=== PATIENT | male | born 1960 | race Caucasian/White ===

== ENCOUNTER 2016-10-05 17:06 | Inpatient (IN) ==
[2016-10-05] MEDS ORDERED: ONDANSETRON 4 MG/2 ML INJECTION IVP ONE (17:18)
[2016-10-05] MEDS ORDERED: KETOROLAC 30 MG/ML INJECTION IVP ONE (17:18)
[2016-10-05] MEDS ORDERED: TAMSULOSIN 0.4 MG CAPSULE PO ONE (17:21)
--- NOTE | 2016-10-05 17:34 | Emergency Department Report ---
Male Urogenital HPI - General Stated complaint: Kidney Stone <10/05/16 17:39> Time Seen by Provider: 10/05/16 17:09 <10/05/16 17:39> Source: patient <10/05/16 17:39> Mode of arrival: ambulatory <10/05/16 17:39> Limitations: no limitations <10/05/16 17:39> - History of Present Illness HPI Narrative: 56yo man presents to the ER today with left flank pain of 12+hrs duration. Pt was seen in this ER last evening; he had hematuria and met minor criteria for a UTI. Pt has been taking the atbx as prescribed. This AM, pt had abrupt onset of left flank pain that wrapped around to his left abdomen. Pain has been colicky and associated with nausea. Pain has migrated into his left groin. Pt took some norco that he had at home with minimal relief of his sx. <10/05/16 17:39> Onset (ago): hour(s) <10/05/16 17:39> Duration: constant, intermittent <10/05/16 17:39> Location: left flank <10/05/16 17:39> Radiation: left testicle <10/05/16 17:39> Severity: severe <10/05/16 17:39> Severity scale (1-10): 9 <10/05/16 17:39> Quality: aching, sharp, stabbing <10/05/16 17:39> Relieving factors: none <10/05/16 17:39> Exacerbating factors: palpation, movement <10/05/16 17:39> Reports: nausea/vomiting <10/05/16 17:39> - Related Data Home Medications Medication Instructions Recorded Confirmed ALPRAZolam [Xanax] 1 mg PO PRN #0 03/06/08 10/05/16 Rosuvastatin Calcium [Crestor] 20 mg PO DAILY #0 06/17/12 10/05/16 Aspirin 81 mg PO DAILY 10/04/16 10/05/16 Cholecalciferol (Vitamin D3) 3,000 unit PO DAILY 10/04/16 10/05/16 [Vitamin D3] Insulin Lispro [HumaLOG] 70 - 120 unit SQ DAILY 10/04/16 10/05/16 Ramipril [Altace] 2.5 mg PO DAILY 10/04/16 10/05/16 Previous Rx's Medication Instructions Recorded Ciprofloxacin HCl [Cipro] 500 mg PO BID #14 tablet 10/04/16 <10/05/16 17:39> Allergies Allergy/AdvReac Type Severity Reaction Status Date / Time minocycline Allergy Severe rash & Verified 10/05/16 17:16 confusion exenatide Allergy Unknown Verified 10/05/16 17:16 naproxen Allergy Unknown Verified 10/05/16 17:16 zolpidem Allergy Unknown Verified 10/05/16 17:16 hydrocodone AdvReac Mild VOMITING Verified 10/05/16 17:16 oxycodone AdvReac Mild Nausea Verified 10/05/16 22:03 <10/05/16 17:39> Review of Systems All systems: reviewed and negative except as stated <10/05/16 17 :39> Constitutional: Reports: fever <10/05/16 17:39> Genitourinary: Reports: frequency, hematuria, other (hematuria) <10/05/16 17:39> [facility] Patient Stated Medical History Diabetes Mellitus Type 2 Yes Gastroesophageal Reflux Yes Disease Osteoarthritis Yes <10/05/16 17:39> - Social History Smoking status: Never smoker <10/05/16 17:39> Physical Exam - Limitations Limitations: no limitations <10/05/16 17:39> - General General appearance: alert, in distress (Pt is diaphoretic, dyspneic, and in obvious pain), obese <eb 10/05/16 17:39> - Normal Exams: Head:: Normocephalic without trauma <10/05/16 17:39> Eyes:: Pupils are PERRLA w/ EOMI, No scleral icterus, irritation, or foreign bodies noted <eb 10/05/16 17:39> ENMT:: No facial trauma, nasal exudates, pharyngeal erythema, or exudates are noted <July,Julio 10/05/16 17:39> Neck:: Full range of motion, without adenopathy, JVD, bruits or thyromegaly < 10/05/16 17:39> Chest/Respirations:: Clear all randolph, with good airflow, and symmetry bilaterally <July,Julio 10/05/16 17:39> Cardiovascular:: Regular rate and rhythm, without murmur or gallop, Pulses 2+ all extremities, capillary refill, <2 seconds all extremities <July,Julio 10/05/16 17:39> Abdomen:: Bowel sounds positive, soft, non-tender, non-distended, no hepatosplenomegaly, masses or bruits noted <10/05/16 17:39> Lymphatic:: No lymphadenopathy, or lymphedema noted <July,Julio10/05/16 17 :39> Musculoskeletal:: No tenderness, or deformity noted, good range of motion, all extremities <10/05/16 17:39> Integumentary:: No rashes, hives, or bruising noted, hair and nails, without abnormality <eb 10/05/16 17:39> Neurological:: Patient is alert, and oriented, cranial nerves, motor/sensory/ cerebellar, exams w/o gross deficits, to observation <July,Julio10/05/16 17:39> Psychiatric:: Patient exhibits, appropriate attention, emotion and affect <July10/05/16 17:39> Course Course Narrative: Care of pt handed off to Dr. Griffiths @ 1830. CT had been performed, but there were difficulties in transmitting images to [facility] at the time of hand-off. <10/06/16 06:14> Vital Signs Temperature 98.2 F 10/05/16 17:10 Respiratory Rate 18 10/05/16 17:10 Temperature 96.9 F 10/06/16 00:51 Pulse Rate 69 10/06/16 03:52 Respiratory Rate 18 10/06/16 03:52 Blood Pressure 123/65 10/06/16 03:52 Pulse Oximetry 94 10/06/16 03:52 <10/05/16 18:16> Urogenital-Male - MDM Narrative Medical decision making narrative: Labs/imaging were discussed in detail with the patient and family and questions are answered. Patient had a CT scan which shows hydroureter/hydronephrosis on the left. No appreciable stone is noticed. Urology consultation is obtained with Dr. Skinner. Dr. Skinner comes to the emergency department to evaluate the patient. Patient is given IV hydration. Patient is given parental narcotic and antiemetic medications intravenously. Patient was given Rocephin 1 g IV within 1st hour of arrival to the emergency department. Patient is made nothing by mouth in the emergency Department. Patient is admitted to the service of the hospitalist Dr. Car after discussion with Dr. Johnson. Accepting and consulting physicians are in agreement with the current plan of management. Patient is admitted to the hospital in improved condition. No further orders. Patient and family are in agreement with the current plan of management. Patient did not meet criteria for 30 mL/ kg of normal saline intravenously as his lactic acid was not greater than 4 and he was never hypotensive in the emergency department. <Keith Griffiths C - 10/05/16 21:24> Pt with s/s classic for ureterolithiasis. No stones noted on KUB. CT renal c/f hydroureter; labs c/f sepsis. Atbx started to cover empirically. Awaiting CT read prior to contacting urologist for discussion of further mgmt. <10/05/16 18:16> - Differential Diagnosis Likely: urinary tract infection (Ureterolithiasis, hematuria, hydroureter, hydronephrosis, pyelonephritis) <10/05/16 17:39> - Medical Records Attestation: I reviewed the patient's medical records. < 17:39> - Lab Data Attestation: I reviewed the patient's lab results. <10/06/16 06: 14> Result diagrams: 10/06/16 04:18 10/06/16 04:18 <July,Julio M - 10/05/16 17:39> Lab Results 10/05/16 10/05/16 10/05/16 Range/Units 17:20 17:20 18:57 WBC 15.1 H (4.5-11.0) T/MM3 RBC 5.75 (4.50-5.90) M/MM3 Hgb 16.5 (13.5-17.5) GM/DL Hct 49.6 (41-53) % MCV 86.3 (80-100) UM3 MCH 28.7 (26-34) UUG MCHC 33.3 (31-37) GM/DL RDW Std Deviation 45.1 (36.9-50.2) FL Plt Count 236 (130-400) T/MM3 MPV 10.9 (9.4-12.4) UM3 Immature Gran % (Auto) Not performed Neut % (Auto) Not performed Lymph % (Auto) Not performed [place] % (Auto) Not performed Eos % (Auto) Not performed Baso % (Auto) Not performed Neut # Not performed Lymph # Not performed [place] # Not performed Eos # Not performed Baso # Not performed Abs Immat Gran (auto) Not performed Neutrophils % (Manual) 67.0 H (33-66) % Band Neutrophils % 12.0 H (0-6) % Lymphocytes % (Manual) 15.0 L (23-45) % Monocytes % (Manual) 3.0 (0-9.0) % Eosinophils % (Manual) 1.0 (0-4) % Metamyelocytes % 2.0 H (0-0) % Neutrophils # (Manual) 10.1 H (1.8-7.7) T/MM3 Band Neutrophils # 1.8 T/MM3 Lymphocytes # (Manual) 2.3 (1-4.8) T/MM3 Monocytes # (Manual) 0.5 (0-0.8) T/MM3 Eosinophils # (Manual) 0.2 (0-0.5) T/MM3 Metamyelocytes # 0.3 T/MM3 RBC Morph Comment Normal Turbidity < 20 (0-20) Sodium 143 (134-144) MEQ/L Potassium 4.0 (3.6-5) MEQ/L Chloride 101 (98-107) MEQ/L Carbon Dioxide 25 (22-30) MEQ/L Anion Gap 17 H (5-15) MEQ/L BUN 11.0 (9-20) MG/DL Creatinine 0.9 D (0.8-1.5) MG/DL GFR Calculation 88 BUN/Creatinine Ratio 12 (6-26) RATIO Glucose 201 H (75-110) MG/DL Calculated Osmolality 280 (261-280) MOSM/KG Calcium 9.8 (8.4-10.2) MG/DL Total Bilirubin 0.90 (0.20-1.30) MG/DL Icterus Index < 2 (0-7) AST 31 (17-59) U/L ALT 47 (21-72) U/L Alkaline Phosphatase 92 (38-126) U/L Total Protein 7.8 (6.3-8.2) G/DL Albumin 4.8 (3.5-5.0) G/DL Globulin 3.0 (2.4-3.6) G/DL Albumin/Globulin Ratio 1.6 (1.1-2.2) RATIO Plasma Lactate 2.9 H (0.6-2.2) MMOL/L Specimen Hemolysis < 15 (0-25) Ur Collection Type Urine, clean catch Urine Color Yellow (YELLOW) Urine Clarity Sl cloudy Urine pH 5.0 (5.0-8.0) Ur Specific [place] >=1.030 H (1.015-1.025) Urine Protein 1+ A (NEGATIVE) Urine Glucose (UA) Trace A (NEGATIVE) Urine Ketones 1+ A (NEGATIVE) Urine Occult Blood 3+ A (NEGATIVE) Urine Nitrate Negative (NEGATIVE) Urine Bilirubin 1+ A (NEGATIVE) Urine Urobilinogen 0.2 (NORMAL) EU/DL Ur Leukocyte Esterase Negative (NEGATIVE) Urine RBC 50-200 H (0-3) /HPF Urine WBC 1-3 (0-5) /HPF Urine Bacteria 1+ H (NEGATIVE) Ur Culture Indicated? Cult not indicated <10/05/16 18:16> - Radiology Data Attestation: I reviewed the patient's radiology results. < 17:39> KUB: Non-obstructing bowel gas pattern. No free air or fluid. Prior lumbar fusion. No obvious renal pathology. CT Renal: Dilatation of the left renal pelvis and proximal left ureter of uncertain etiology CT urogram might be considered for followup. Sigmoid diverticulosis <10/06/16 06:14> Disposition Clinical Impression: Hydronephrosis Qualifiers: Hydronephrosis type: other Qualified Code(s): N13.39 - Other hydronephrosis <10/06/16 06:14> Disposition: 02 To [facility] [place] <10/06/16 06:14> Condition: Improved <10/06/16 06:14> Instructions: <10/05/16 17:39> Prescriptions: No Action ALPRAZolam [Xanax] 1 mg PO PRN #0 Rosuvastatin Calcium [Crestor] 20 mg PO DAILY #0 Aspirin 81 mg PO DAILY Cholecalciferol (Vitamin D3) [Vitamin D3] 3,000 unit PO DAILY Insulin Lispro [HumaLOG] 70 - 120 unit SQ DAILY Ramipril [Altace] 2.5 mg PO DAILY Ciprofloxacin HCl [Cipro] 500 mg PO BID #14 tablet <10/05/16 17:39> Referrals: Luke Avila MD [Family Provider] - <10/05/16 17 :39> Forms: <10/05/16 17:39> Time of Disposition: 20:20 (Admit. Dr. Car. ) <Keith Griffiths 10/05/16 21: 24> - Seen By: physician <Keith Griffiths 10/05/16 21:24>
[2016-10-05] MEDS: NS 1,000 ML IV SCH ×3 (17:38→23:41)
[2016-10-05] MEDS: SALINE FLUSH 10ml SYRINGE IVF PRN (17:39)
[2016-10-05] MEDS ORDERED: FentaNYL 100 MCG/2 ML INJECTION IVP PRN (17:45)
[2016-10-05] MEDS ORDERED: CEFTRIAXONE (ER USE ONLY) 1 GM in NS 100 ML IV ONE (17:59)
--- NOTE | 2016-10-05 21:17 | Urology Consult Note ---
Urology [facility] - Data of Consult Consult date: 10/05/16 Requesting Physician: Zoila Mars MD Primary Care Provider: Luke Avila MD Family Provider: Luke Avila MD - Consult Narrative Reason for consult: Left hydronephrosis + SEpsis History of present illness: This is a 56-year-old patient who began having left flank pain 2 days ago. He also noticed blood in his urine. He presented to the ER where he was when he was given a prescription for antibiotic and discharged home. However his pain persisted and became worse. He came to the ER again today. CT scan done showed left hydronephrosis secondary to obstruction the left mid ureter. CT did not reveal a clear stone. The patient did not receive IV contrast do due to the strong family history to IV contrast. He continues to report gross hematuria and severe left flank pain. He denies fevers or chills. His white blood count is 15,000. His lactate level is 2.9. Patient has no history. He is not a heavy smoker. He has insulin-dependent diabetes. Review of Systems - Constitutional Constitutional: Absent: fever(s), headache(s), malaise - EENT Eyes: Absent: blurry vision, change in vision Mouth/Throat: Absent: mucosa dry, normal dentition - Cardiovascular Cardiovascular: Absent: chest pain, palpitations, syncope - Respiratory Respiratory: Absent: cough, dyspnea, hemoptysis - Gastrointestinal Gastrointestinal: Absent: abdominal pain, change in bowel habits, change in stool character - Genitourinary Genitourinary: Present: flank pain, hematuria - Musculoskeletal Musculoskeletal: Absent: deformity, joint swelling, limited range of motion - Integumentary/Breasts Integumentary: Absent: erythema, lesions - Neurological Neurological: Absent: abnormal gait, abnormal movements, confusion, headache(s) - Psychiatric Psychiatric: Absent: anxiety, auditory hallucinations, hallucinations PFSH Insulin-dependent diabetes Back pain Pancreatitis Surgical History: Cholecystectomy Family History: No family history of stones - Social History Smoking status: Former smoker (occasional during his thirties) Medications Home Medications Medication Instructions Recorded Confirmed Type ALPRAZolam [Xanax] 1 mg PO PRN #0 03/06/08 10/05/16 History Rosuvastatin Calcium [Crestor] 20 mg PO DAILY #0 06/17/12 10/05/16 History Aspirin 81 mg PO DAILY 10/04/16 10/05/16 History Cholecalciferol (Vitamin D3) 3,000 unit PO DAILY 10/04/16 10/05/16 History [Vitamin D3] Insulin Lispro [HumaLOG] 70 - 120 unit SQ DAILY 10/04/16 10/05/16 History Ramipril [Altace] 2.5 mg PO DAILY 10/04/16 10/05/16 History Allergies Allergy/AdvReac Type Severity Reaction Status Date / Time minocycline Allergy Severe rash & Verified 10/05/16 17:16 confusion exenatide Allergy Unknown Verified 10/05/16 17:16 naproxen Allergy Unknown Verified 10/05/16 17:16 zolpidem Allergy Unknown Verified 10/05/16 17:16 oxycodone AdvReac Severe Nausea Verified 10/05/16 17:47 hydrocodone AdvReac Mild VOMITING Verified 10/05/16 17:16 Urology Results - Labs CBC & Chem 7: 10/05/16 17:20 10/05/16 17:20 - Imaging and Cardiology CT scan - abdomen Additional comments: See history of present illness Urology Exam Vital signs: Temperature 98.2 F 10/05/16 17:10 Pulse Rate 99 10/05/16 20:02 Respiratory Rate 18 10/05/16 17:10 Blood Pressure 129/82 10/05/16 20:13 Pulse Oximetry 95 10/05/16 20:02 - Constitutional no acute distress - HEENT Exam Head: Present: normocephalic, atraumatic Eye: Present: EOMI - Neck Exam Present: supple - Respiratory Exam Absent: dyspnea - Cardiovascular Exam Present: RRR - Abdominal/Groin Exam Present: soft, non tender - Extremities Exam Present: no edema, non tender, full ROM - Neurological Exam Present: alert, oriented X3 - Psychiatric Exam Present: normal affect Assessment and Plan (1) Hydronephrosis 56-year-old patient with left hydronephrosis and sepsis. Plan: I discussed with the patient and his the need for drainage of the left kidney. If the kidney is not draining his infection can get worse. At this point it is not clear what is causing obstruction to his left kidney. Patient declined an IV contrast study due to the strong family history of allergy to IV contrast. Differential diagnosis includes stones ,tumors or strictures. We discussed the options of stent versus nephrostomy tube. Patient elects for a stent placement tonight. I discussed the risks and benefits associated with the procedure including infection ureteral injury and inability to place a stent requiring nephrostomy tube. Patient will need to be admitted to the hospital after stent placement for IV antibiotics and monitoring for sepsis. Hospital Course Summary Disclaimer: The visit summary below is not to be considered part of the above Progress Note.
--- NOTE | 2016-10-05 21:43 | Anesthesia Preoperative Report ---
Anesthesia Preoperative Record - Date and Time Date: 10/05/16 Preoperative Diagnosis: Ureteral Obstruction with UTI,Sever Sepsis Proposed Procedure: Cystoscopy with left stent placement NPO Since Date: 10/05/16 NPO Since Time: 12:30 Allergies/Adverse Reactions: Allergies Allergy/AdvReac Type Severity Reaction Status Date / Time minocycline Allergy Severe rash & Verified 10/05/16 17:16 confusion exenatide Allergy Unknown Verified 10/05/16 17:16 naproxen Allergy Unknown Verified 10/05/16 17:16 zolpidem Allergy Unknown Verified 10/05/16 17:16 oxycodone AdvReac Severe Nausea Verified 10/05/16 17:47 hydrocodone AdvReac Mild VOMITING Verified 10/05/16 17:16 - Vital Signs Vital Signs: Temperature 98.2 F 10/05/16 17:10 Pulse Rate 99 10/05/16 20:02 Respiratory Rate 18 10/05/16 17:10 Blood Pressure 129/82 10/05/16 20:13 Pulse Oximetry 95 10/05/16 20:02 - Medications Inpatient Medications: Current Medications Fentanyl (Fentanyl) 50 mcg IVP O PRN Last Admin: 10/05/16 17:48 Dose: 50 mcg Sodium Chloride (Normal Saline) 1,000 mls @ 1,000 mls/hr IV .Q1H LLOYD Last Infusion: 10/05/16 19:47 Dose: Infused Sodium Chloride (Iv Flush) 10 - 80 ml IVF PRN PRN PRN Reason: Flushing Last Admin: 10/05/16 17:39 Dose: 20 ml Home Medications: Home Medications Medication Instructions Recorded Confirmed Type ALPRAZolam [Xanax] 1 mg PO PRN #0 03/06/08 10/05/16 History Rosuvastatin Calcium [Crestor] 20 mg PO DAILY #0 06/17/12 10/05/16 History Aspirin 81 mg PO DAILY 10/04/16 10/05/16 History Cholecalciferol (Vitamin D3) 3,000 unit PO DAILY 10/04/16 10/05/16 History [Vitamin D3] Insulin Lispro [HumaLOG] 70 - 120 unit SQ DAILY 10/04/16 10/05/16 History Ramipril [Altace] 2.5 mg PO DAILY 10/04/16 10/05/16 History Is Patient on Beta Twan?: No - Medical History Cardiovascular: Reports: Hypertension, High Cholesterol Neuro/Musculoskeletal: Reports: Other (Anxiety) Renal/Endocrine: Reports: Diabetes Mellitus Type 1 (Insulin pump) - Surgical History HEENT Surgeries: Reports: Tonsillectomy Cardiac Surgeries/Treatments: Reports: Cardiac Catheterization (follows with Cardiology) GI Surgery/Treatments: Reports: Cholecystectomy Musculoskeletal Surgery/Tx: Reports: Other (LUMBAR SPINAL FUSION) Hx Family Anesthesia Reaction: No History of Motion Sickness: No - Social History Smoking Status: Former smoker (occasional during his thirties) Hx Chewing Tobacco Use: No Second Hand Exposure: No Substance Use Type: does not use Alcohol Intake Frequency: does not drink - Pertinent Findings EKG Rhythm: Normal Sinus Rhythm, Bundle Branch Block - Physical Exam Respiratory Exam: Present: lungs clear Cardiovascular Exam: Present: regular rate and rhythm - Airway Assessment Mallampati Score: II TMD: 3 Fingerbreadths Overall Assessment: no airway concerns - ASA ASA Score: 3 - Plan Anesthesia: General Inhalation Gases - Discussion Discussion: Discussed risks/options/alternatives of anesthesia and questions answered. Patient consents. Nursing pain assessment noted. Present for Discussion: spouse Attestation Statement: Prior to the delivery of any anesthetic medication, I examined the patient, developed the plan, obtained the patient's consent and discussed the risk and benefits of the procedure with the patient/guardian. - Additional Information Seen by Anesthesia: Yes
[2016-10-05] MEDS ORDERED: PROPOFOL 20 ML ONE (21:48)
[2016-10-05] MEDS ORDERED: LIDOCAINE 2% (100mg/5mL) PF 5ml vl ONE (21:50)
[2016-10-05] MEDS ORDERED: LIDOCAINE 2% JELLY Tube 30ml ONE (21:52)
[2016-10-05] MEDS ORDERED: ROCURONIUM 50 MG/5 ML INJECTION IVP ONE (21:54)
[2016-10-05] MEDS ORDERED: SUCCINYLCHOLINE 20mg/mL 10mL INJECTION ONE (21:54)
[2016-10-05] MEDS ORDERED: GENTAMICIN 80mg/2ml INJECTION ONE (22:10)
[2016-10-05] MEDS ORDERED: GENTAMICIN IV ONE (22:13)
[2016-10-05] MEDS ORDERED: NS IV ONE (22:13)
[2016-10-05] MEDS ORDERED: FentaNYL 100 MCG/2 ML INJECTION ONE (22:16)
[2016-10-05] MEDS ORDERED: ONDANSETRON 4 MG/2 ML INJECTION ONE (22:27)
[2016-10-05] MEDS ORDERED: LIDOCAINE 2% JELLY (Urojet) 20ml MM ONE ×2 (22:27→22:29)
[2016-10-05] MEDS ORDERED: IOHEXOL 300mg/ml 50ml INJECTION OPSITE ONE (22:27)
[2016-10-05] MEDS ORDERED: DEXAMETHASONE 4 MG/ML INJECTION ONE (22:27)
[2016-10-05] MEDS ORDERED: HYDROMORPHONE 2 MG/ML INJECTION IVP PRN ×2 (22:46→23:38)
[2016-10-05] MEDS ORDERED: METOCLOPRAMIDE 10mg/2ml INJECTION IVP PRN (22:46)
[2016-10-05] MEDS ORDERED: ONDANSETRON 4 MG/2 ML INJECTION IVP PRN ×2 (22:46→23:38)
--- NOTE | 2016-10-05 22:51 | Anesthesia Postoperative Note ---
- Date and Time Date: 10/05/16 Time: 22:51 - Status Patient Participated in Evaluation: Patient Participated in Person Vital Signs: Temperature 98.2 F 10/05/16 17:10 Pulse Rate 99 10/05/16 20:02 Respiratory Rate 18 10/05/16 17:10 Blood Pressure 129/82 10/05/16 20:13 Pulse Oximetry 95 10/05/16 20:02 Respiratory Function: Airway Patent Cardiovascular Function: Regular Pulse EKG Rhythm: Normal Sinus Rhythm Mental Status: Alert and Oriented Pain Intensity: 0 Hydration: Nausea Complications During Recover: None Apparent - Follow-Up Instructions Instructions: Per Surgeon
--- NOTE | 2016-10-05 22:53 | Operative Note ---
- Procedure Date of Admission: 10/05/16 Preoperative Diagnosis: Left hydronephrosis Leukocytosis with elevated lactate Postoperative Diagnosis: Same Operation: Cystoscopy with left retrograde pyelogram Left stent placement Surgeon: yolette Skinner M.D. Complications: None. Anesthesia: General TIVA Estimated Blood Loss: Minimal Drains: 6 x 26 left double-J stent Urine Output: Not measured Fluids: Please see Anesthesia Record. Description of Procedure: Radiologic findings Left retrograde pyelogram showed a kinking in the left proximal ureter with significant ureterohydronephrosis Indication for the procedure This is a 56-year-old male who came to the ER for severe left flank pain. CT scan showed the left hydronephrosis secondary to obstruction left proximal ureter. No evidence of stone. Patient had leukocytosis and elevated lactate. After discussion of his options elected to proceed with left stent placement. Description of the procedure Patient was identified in the preoperative holding area. The procedure was explained to him and he agreed to proceed. He was then taken to the operating room where he was placed supine on the operative table. Gen. anesthesia was induced. He was then placed in the dorsal lithotomy position. His genitalia were prepped and draped in the usual fashion. At this time for multiple timeout was done and all the persons in the room were in agreement. I began the procedure by introducing the cystoscope into the bladder. There was no lesion in the urethra or the prostate. The 2 UOs were orthotopic in position. I then inspected the bladder mucosa closely and there were no lesions identified. 5 Armenian ureteral catheter was ureteral catheter wasn't was then used to intubate the left UO. I then shot a left retrograde pyelogram that showed kinking in the left proximal ureter with severe left hydronephrosis. I was able to pass a sensor wire through the [address] up to the left kidney. The 5 pressures are ureteral catheter was then removed making sure that the wire was in the left kidney . A 6 x 26 double-J stent was then advanced over the wire under fluoroscopy guidance to the level of the left kidney. The wire was then removed and I observed a nice curl of the stent in the kidney and in the bladder. The bladder was then emptied .this concluded the procedure. Patient was awakened from anesthesia and taken to PACU . Patient will be admitted to the hospitalist service for IV antibiotics. If his labs normalized he can be discharged home on Friday. He will need a ureteroscopy in 7-10 days to inspect his ureter and rule out an obstructing lesion. Disposition: floor
[2016-10-05] MEDS ORDERED: ACETAMINOPHEN 325 MG TABLET PO PRN (23:38)
[2016-10-05] MEDS ORDERED: CEFTRIAXONE 1 G in NS 100 ML IV SCH (23:38)
[2016-10-05] MEDS ORDERED: INSULIN REGULAR, HUMAN 100 UNIT/ML INJECTION SQ PRN (23:38)
[2016-10-05 23:59] VITALS: BMI 35.6
--- NOTE | 2016-10-06 00:05 | History & Physical Report ---
History of Present Illness Date: 10/06/16 Chief complaint: flank pain, left HPI: This is a 56 y/o male who was seen yesterday due to hematuria. He was started on cipro for a UTI. The patient went to his job in [employer] and felt relatively well today. He had onset of increased low back de radiating down his left groin and presented to the ED where a CT renal stone protocol demonstrated an obstructive uropathy picture. The patient underwent a urloglocial evaluation in the OR with a stent placed. The family reports that perhaps a loop to his left ureter or possibly an external structure precipitated this event. The patient is now admitted for urological considerations. Review of Systems Review of systems: no fever or chills, no uri sx, abdomen pain with nausea, crampy sensation currently, pain as noted above, hematuria is improved from yesterday, no focal neuro complaints. otherwise ros neg other than stated above. - Genitourinary Genitourinary: Present: flank pain, hematuria PFSH Patient Stated Medical History Hypertension Yes Diabetes Mellitus Type 1 Yes: Insulin pump Other Musculoskeletal Yes: Anxiety Surgical History: Cholecystectomy - Social History Smoking status: Former smoker (occasional during his thirties) Does patient use chewing tobacco?: No Medications Home Medications Medication Instructions Recorded Confirmed Type ALPRAZolam [Xanax] 1 mg PO PRN #0 03/06/08 10/05/16 History Rosuvastatin Calcium [Crestor] 20 mg PO DAILY #0 06/17/12 10/05/16 History Aspirin 81 mg PO DAILY 10/04/16 10/05/16 History Cholecalciferol (Vitamin D3) 3,000 unit PO DAILY 10/04/16 10/05/16 History [Vitamin D3] Insulin Lispro [HumaLOG] 70 - 120 unit SQ DAILY 10/04/16 10/05/16 History Ramipril [Altace] 2.5 mg PO DAILY 10/04/16 10/05/16 History Allergies Allergy/AdvReac Type Severity Reaction Status Date / Time minocycline Allergy Severe rash & Verified 10/05/16 17:16 confusion exenatide Allergy Unknown Verified 10/05/16 17:16 naproxen Allergy Unknown Verified 10/05/16 17:16 zolpidem Allergy Unknown Verified 10/05/16 17:16 hydrocodone AdvReac Mild VOMITING Verified 10/05/16 17:16 oxycodone AdvReac Mild Nausea Verified 10/05/16 22:03 Exam Vital Signs: Temperature 96.8 F 10/05/16 23:36 Pulse Rate 90 10/05/16 23:36 Respiratory Rate 20 10/05/16 23:36 Blood Pressure 134/73 10/05/16 23:36 Pulse Oximetry 92 10/05/16 23:36 Oxygen Delivery Method Room Air Oxygen Flow Rate 6 Telemetry Rhythm: Sinus Rhythm Height: 1.63 m Weight: 94.3 kg Body Mass Index: 35.6 - Constitutional Present: moderate distress, well nourished, well developed, average body habitus , cooperative - Routine HEENT Exam Head: Present: normocephalic, atraumatic Eye: Present: EOMI ENT: Present: mucous membranes moist - Routine Neck Exam Present: supple - Routine Cardiovascular Exam Present: RRR, no murmur - Routine Abdominal Exam Comments: per nursing the patient had mild to mod lowet quadrant tenderness - Routine Extremities Exam Present: no edema, non tender, full ROM - Routine Back/Spine/Pelvis Exam Back/Spine: Present: full ROM - Routine Neurological Exam Present: alert, oriented X3 - Routine Psychiatric Exam Present: normal affect Results - Labs CBC & Chem 7: 10/05/16 17:20 10/05/16 17:20 - Imaging and Cardiology CT scan - abdomen Additional comments: dilated left ureteral system Assessment and Plan (1) UTI (urinary tract infection) Current visit: Yes Status: Acute 10/06/16 00:10 continue rocephin, ivf, adjust antibitoics based on results of cx. Obviously the increased risk is this obstructive uropathy ocurring. if there is a delay in drainage of the urine this incrases the risk of infection (2) Hydronephrosis Current visit: Yes Status: Acute 10/06/16 00:11 see urology note. apparently surgical evaluation did not demonstrate a stone, but rather either a redundant "loo" of the ureter or perhaps an extrinsic source. This will be further assessed by urollogy, see their notes. Stent in place (3) DM type 2 (diabetes mellitus, type 2) Current visit: Yes Status: Acute 10/06/16 00:12 patient on an insulin pump. for now stop pump. correctional plan with ivf. once po status stable can consider restarting pump. patient on BRANDY inhibitor as a renal protective process. this should be considered once the patient is medically stable DVT Prophylaxis: SCD's Resuscitation Status: Full Code Hospital Course Summary Disclaimer: The visit summary below is not to be considered part of the above Progress Note.
[2016-10-06] MEDS ORDERED: KETOROLAC 30 MG/ML INJECTION IVP ONE (00:46)
[2016-10-06] MEDS: HYDROMORPHONE 2 MG/ML INJECTION IVP PRN ×3 (02:13→07:27)
[2016-10-06] MEDS: NS 1,000 ML IV SCH ×3 (07:08→21:50)
[2016-10-06] MEDS: MORPHINE SULFATE 10 MG SYRINGE IV PRN ×4 (08:49→22:33)
--- NOTE | 2016-10-06 09:34 | XRay Report ---
Indication: Left flank pain PROCEDURE: XR KUB: Encounter: Initial Comparison: Renal CT from the same date Findings: Nonobstructive nonspecific bowel gas pattern. No obvious renal or ureteral stones. Postoperative changes in the lumbar spine with degenerative disk disease. Impression: No acute abnormality seen. .
--- NOTE | 2016-10-06 09:34 | CT Scan Report ---
Indication: Left flank pain PROCEDURE: CT renal wo con (stone rosie): Encounter: Initial Comparison: None Technique: Axial CT images were performed through the abdomen and pelvis without intravenous contrast. Coronal and sagittal two-dimensional reformats. Automated Exposure Control and Iterative Reconstruction dose reducing techniques were utilized. Findings: The lung bases are clear. The unenhanced contours of the liver are unremarkable. Gallbladder is surgically absent. The spleen, pancreas and adrenal glands are normal. Small duodenal diverticulum. Right kidney appears normal. Bladder is decompressed. Prostate and rectum are unremarkable. Sigmoid diverticulosis without evidence of acute diverticulitis. No bowel obstruction. The appendix is normal. Left kidney is abnormal with severe hydronephrosis and perinephric stranding. Severe hydroureter to the level of an apparent severe stenosis or stricture in the midportion of the ureter at the L4-L5 level. The distal ureter is completely decompressed. No visible ureteral stone. Bone windows show degenerative and postoperative changes in the lumbar spine without acute finding. 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 Recommend urologic consultation and evaluation. There is a preliminary report by [facility]. .
[2016-10-06] MEDS: SENNA + DOCUSATE TABLET PO PRN ×2 (09:47→20:35)
[2016-10-06] MEDS: SALINE FLUSH 10ml SYRINGE IVF PRN (09:52)
[2016-10-06] MEDS: TAMSULOSIN 0.4 MG CAPSULE PO SCH (10:22)
[2016-10-06] MEDS ORDERED: ALPRAZolam 1 MG TABLET PO PRN (14:58)
[2016-10-06] MEDS ORDERED: ALPRAZolam 1 MG TABLET PO SCH (15:00)
[2016-10-06] MEDS: RAMIPRIL 2.5 MG CAPSULE PO SCH (16:00)
[2016-10-06] MEDS ORDERED: CEFTRIAXONE 1 G in NS 100 ML IV SCH (18:34)
[2016-10-06] MEDS: KETOROLAC 15 MG/ML INJECTION IVP SCH (20:35)
[2016-10-06] MEDS: ROSUVASTATIN 20 MG TABLET PO SCH ×2 (20:36→22:32)
[2016-10-07] MEDS: KETOROLAC 15 MG/ML INJECTION IVP SCH ×3 (03:01→15:46)
[2016-10-07] MEDS: NS 1,000 ML IV SCH ×2 (08:04→17:27)
[2016-10-07] MEDS: RAMIPRIL 2.5 MG CAPSULE PO SCH (08:52)
[2016-10-07] MEDS: TAMSULOSIN 0.4 MG CAPSULE PO SCH (08:53)
[2016-10-07] MEDS ORDERED: ASPIRIN 81 MG CHEWABLE TABLET PO SCH (09:00)
--- NOTE | 2016-10-07 10:45 | Progress Note ---
Subjective: Pt states he is feeling much better and has not required Morphine since last night. No nausea no fevers, tolerating well PO and ambulating well. Objective Vital signs: Temperature 97.4 F 10/07/16 07:31 Pulse Rate 55 L 10/07/16 07:31 Respiratory Rate 16 10/07/16 07:31 Blood Pressure 150/77 H 10/07/16 07:31 Pulse Oximetry 94 10/07/16 07:31 Oxygen Delivery Method Room Air Oxygen Flow Rate 6 Rhythm: Normal Sinus Rhythm Weight: 96.7 kg - Constitutional Present: no acute distress - Routine HEENT Exam Head: Present: normocephalic, atraumatic Eye: Present: EOMI, PERRL - Routine Cardiovascular Exam Present: RRR, S1, S2 - Routine Extremities Exam Absent: cyanosis, clubbing, edema - Routine Skin Exam Present: intact - Routine Neurological Exam Present: alert, oriented X3, CN II-XII intact - Routine Psychiatric Exam Present: normal affect, cooperative, good insight, good judgment Results - Labs CBC & Chem 7: 10/06/16 04:18 10/06/16 04:18 Microbiology Results: Microbiology 10/06/16 10:43 Urine, Voided (Cc/notcc) Urine Culture - Preliminary Culture Initiated - Results Pending Assessment and Plan (1) Hydronephrosis Current visit: Yes Status: Acute 10/06/16 00:11 see urology note. apparently surgical evaluation did not demonstrate a stone, but rather either a redundant "loo" of the ureter or perhaps an extrinsic source. This will be further assessed by urollogy, see their notes. Stent in place (2) UTI (urinary tract infection) Current visit: Yes Status: Acute 10/06/16 00:10 continue rocephin, ivf, adjust antibitoics based on results of cx. Obviously the increased risk is this obstructive uropathy ocurring. if there is a delay in drainage of the urine this incrases the risk of infection (3) DM type 2 (diabetes mellitus, type 2) Current visit: Yes Status: Acute 10/06/16 00:12 patient on an insulin pump. for now stop pump. correctional plan with ivf. once po status stable can consider restarting pump. patient on BRANDY inhibitor as a renal protective process. this should be considered once the patient is medically stable Assessment and Plan: Fredrick is a 56 YO male with no H.O renal stones, who came with hydronephrosis and had a stent placed on 10/05 overnigth. His pain management was changed from Dilaudid to Morphine 4mg IV Q3H PRN - He is much improved of his pain and he has not needed his morphine since last nigh, has not had any fevers or chills. Diagnosis 1) Hydronephrosis - L side S/P Stent placement. Stable, probably will be able to go home today later. - Blood and urine cultures are pending. - Add Senna (PO) to avoid constipation from Opioids. 2) DM - Pt to use his pump. 3) Leukocytosis - probably due to # 1 -> resolved. - Blood cultures negative at one day. Disposition - probably home later today. Sepsis Assessment - Evaluation Sepsis screening result: No Definite Risk Hospital Course Summary Disclaimer: The visit summary below is not to be considered part of the above Progress Note.
[2016-10-07 11:44] VITALS: RESP 18; TEMP 98.3
[2016-10-07] MEDS ORDERED: CEFDINIR 300 MG CAPSULE PO SCH (13:45)
[2016-10-07 15:44] VITALS: BP 144/80; O2SAT 94
[2016-10-07 16:03] VITALS: PULSE 63
--- NOTE | 2016-10-07 16:45 | Discharge Instructions ---
Discharge Plan - Med Rec/Dispo Prescriptions: New RX: Cefdinir 300 mg PO Q12HR #12 capsule RX: Morphine Sulfate 15 mg PO Q4H PRN #24 tablet PRN Reason: Pain RX: Morphine Sulfate *Sr* [Ms Contin] 15 mg PO BID #10 tablet RX: Oxybutynin Xl [Ditropan Xl] 10 mg PO DAILY #30 tablet RX: Tamsulosin [Flomax] 0.4 mg PO DAILY #30 capsule RX: Senna + Docusate [Senna Plus Tablet] 1 tab PO BID PRN tablet PRN Reason: Constipation Continue RX: ALPRAZolam [Xanax] 1 mg PO PRN #0 RX: Rosuvastatin Calcium [Crestor] 20 mg PO DAILY #0 RX: Aspirin 81 mg PO DAILY RX: Cholecalciferol (Vitamin D3) [Vitamin D3] 3,000 unit PO DAILY RX: Insulin Lispro [HumaLOG] 70 - 120 unit SQ DAILY RX: Ramipril [Altace] 2.5 mg PO DAILY Discontinued Ciprofloxacin HCl [Cipro] 500 mg PO BID #14 tablet - Disposition 01 Discharged Home, Self-Care
--- NOTE | 2016-10-07 16:54 | Discharge Instructions ---
Discharge Plan - Med Rec/Dispo Prescriptions: New Cefdinir 300 mg PO Q12HR #12 capsule Morphine Sulfate 15 mg PO Q4H PRN #24 tablet PRN Reason: Pain Morphine Sulfate *Sr* [Ms Contin] 15 mg PO BID #10 tablet Oxybutynin Xl [Ditropan Xl] 10 mg PO DAILY #30 tablet Tamsulosin [Flomax] 0.4 mg PO DAILY #30 capsule Senna + Docusate [Senna Plus Tablet] 1 tab PO BID PRN tablet PRN Reason: Constipation Continue ALPRAZolam [Xanax] 1 mg PO PRN #0 Rosuvastatin Calcium [Crestor] 20 mg PO DAILY #0 Aspirin 81 mg PO DAILY Cholecalciferol (Vitamin D3) [Vitamin D3] 3,000 unit PO DAILY Insulin Lispro [HumaLOG] 70 - 120 unit SQ DAILY Ramipril [Altace] 2.5 mg PO DAILY Discontinued Ciprofloxacin HCl [Cipro] 500 mg PO BID #14 tablet - Disposition 01 Discharged Home, Self-Care
--- NOTE | 2016-10-07 17:05 | Discharge Summary ---
Discharge Information Date of admission: 10/05/16 21:00 Anticipated date of discharge: 10/07/16 Attending Physician: Del Car MD Primary care physician: Luke Avila MD Consults: Dr Skinner - urology for stent placement - Discharge Diagnosis Discharge Diagnosis: Fredrick is a 56 YO male with no H.O renal stones, who came with hydronephrosis and had a stent placed on 10/05 over night. His pain management was changed from Dilaudid to Morphine 4mg IV Q3H PRN - He is much improved of his pain and he has not needed his morphine since last night, but needed Toradol about 1 hr ago. He will be going home on MS Contin 15mg BID x 5 days and MS IR 15 mg Q4H PRN x 5 days. Diagnosis 1) Hydronephrosis - L side S/P Stent placement. Stable, probably will be able to go home today later. - Blood and urine cultures are pending. - Pt will have a repeat scope soon (Dr Skinner) for possible ureteral mass. 2) DM - Pt to use his pump. 3) Leukocytosis - probably due to # 1 -> resolved. - Per Dr Skinner will send pt home on Omnicef BID. Disposition - Home later today. - Laboratory Labs: 10/06/16 04:18 10/06/16 04:18 - Microbiology Microbiology 10/06/16 10:43 Urine, Voided (Cc/notcc) Urine Culture - Preliminary No Growth After 1 Day History of Present Illness HPI: This is a 56 y/o male who was seen yesterday due to hematuria. He was started on cipro for a UTI. The patient went to his job in [employer] and felt relatively well today. He had onset of increased low back de radiating down his left groin and presented to the ED where a CT renal stone protocol demonstrated an obstructive uropathy picture. The patient underwent a urloglocial evaluation in the OR with a stent placed. The family reports that perhaps a loop to his left ureter or possibly an external structure precipitated this event. The patient is now admitted for urological considerations. Objective Vital signs: Temperature 98.3 F 10/07/16 11:43 Pulse Rate 63 10/07/16 16:00 Respiratory Rate 18 10/07/16 15:43 Blood Pressure 144/80 H 10/07/16 15:43 Pulse Oximetry 94 10/07/16 15:43 Oxygen Delivery Method Room Air Oxygen Flow Rate 6 Rhythm: Normal Sinus Rhythm Weight: 96.7 kg - Constitutional Present: no acute distress - Routine HEENT Exam Head: Present: normocephalic, atraumatic Eye: Present: EOMI, PERRL - Routine Cardiovascular Exam Present: RRR - Routine Abdominal Exam Present: soft, non tender, distended - Routine Extremities Exam Absent: cyanosis, clubbing, edema - Routine Neurological Exam Present: alert, oriented X3, CN II-XII intact - Routine Psychiatric Exam Present: normal affect, cooperative, good insight, good judgment Hospital Course This is a general summary of the patient's hospital course. For more details refer to the complete medical record. Discharge Plan - Med Rec/Dispo Prescriptions: New Cefdinir 300 mg PO Q12HR #12 capsule Morphine Sulfate 15 mg PO Q4H PRN #24 tablet PRN Reason: Pain Morphine Sulfate *Sr* [Ms Contin] 15 mg PO BID #10 tablet Oxybutynin Xl [Ditropan Xl] 10 mg PO DAILY #30 tablet Tamsulosin [Flomax] 0.4 mg PO DAILY #30 capsule Senna + Docusate [Senna Plus Tablet] 1 tab PO BID PRN tablet PRN Reason: Constipation Continue ALPRAZolam [Xanax] 1 mg PO PRN #0 Rosuvastatin Calcium [Crestor] 20 mg PO DAILY #0 Aspirin 81 mg PO DAILY Cholecalciferol (Vitamin D3) [Vitamin D3] 3,000 unit PO DAILY Insulin Lispro [HumaLOG] 70 - 120 unit SQ DAILY Ramipril [Altace] 2.5 mg PO DAILY Discontinued Ciprofloxacin HCl [Cipro] 500 mg PO BID #14 tablet - Disposition 01 Discharged Home, Self-Care
--- NOTE | 2016-10-08 08:33 | Remote Fluorsocopy Report ---
Indication: LT STENT INSERTION PROCEDURE: RF retrograde pyelogram LT: Encounter: Initial Comparison: Renal CT dated October 05, 2016 Findings: 10 fluoroscopic spot images are submitted for interpretation. Images show retrograde contrast injection into the left ureter showing the significant dilated proximal to mid ureter with abrupt transition to decompressed distal ureter in the midportion. A guidewire is then advanced into the proximal left ureter. Impression: Fluoroscopy as above. Fluoroscopy time is 64 seconds. Fluoroscopy dose is 2890 mRad. .
== END 2016-10-07 17:13 | disposition home or self-care (01) | DRG 872 ==
LOC: ED 17:06 → SRG 21:00
PROVIDERS: ADMIT Emergency Medicine; ATTEND Internal Medicine